=== PATIENT | male | born 1970 | race African-American/Black ===

== ENCOUNTER 2019-08-21 13:16 | Emergency (ER) | payer OTHER ==
[~2019-08-21] VITALS: Ht 180.3 cm; Wt 104.3 kg
[2019-08-21 13:51] VITALS: BP 172/97
--- NOTE | 2019-08-21 17:34 | PHYS DOC ---
Past Medical History Past Medical History: Seizure Past Surgical History: Tonsillectomy Alcohol Use: Occasionally Drug Use: Marijuana Adult General Chief Complaint Chief Complaint: ANXIETY/PANIC ATTACK HPI HPI Patient is a 48 year old male with history of seizures who presents to the ED today to be evaluated for what was listed as anxiety. When I went to patient's room to collect more information,. Patient immediately said i should've talked to the other people and not ask him the same question. Informed patient i asked the nurse information and the nurse reported he has anxiety and nothing more. He stands up, he is yelling stating that we should read information not not ask him any further information, informed patient I'll not able to help him if he cannot give me any further information about his symptoms he continues to states he is not going to give me any information anymore. He states I should know why he is here, he states that i should call his own doctor and figure out why he is here. Informed patient I don't know his doctor. He states i should know his doctor. He states he was seen at urgent care and sent to the ED, and i should know that information from urgent care, informed patient I did not talk to urgent care and do not know why they sent him to the Ed. Inquired from patient if he has any personal or family medical history. He states i should know that information and stop asking him any further information. He states I can call his own parents and gave information from them but is not going to give me any information. Asked patient if he is suicidal or homicidal, he states he is not going to give any further information to anyone any more. In fact he states if we continued to ask him any further question he is going to walk out of the ED. Informed patient at this point i am not able to help him because he is not giving me any information. Informed him i will call the PAT team to come and talk to him, he states if that involves giving more information or talking to someone else he does not want. He states he feels people around here are collecting and listening to his information. He stood up and states he wants to sign out AGAINST MEDICAL ADVICE. Talked to him about the risk of leaving AMA. He states he and knows the risk and can no longer stay in this hospital because we are asking him to many information, he signed out AMA and left. Review of Systems Review of Systems Constitutional: Denies fever or chills [] Eyes: Denies change in visual acuity, redness, or eye pain [] HENT: Denies nasal congestion or sore throat [] Respiratory: Denies cough or shortness of breath [] Cardiovascular: No additional information not addressed in HPI [] GI: Denies abdominal pain, nausea, vomiting, bloody stools or diarrhea [] : Denies dysuria or hematuria [] Musculoskeletal: Denies back pain or joint pain [] Integument: Denies rash or skin lesions [] Neurologic: Denies headache, focal weakness or sensory changes [] Psych: Anxiety All other systems were reviewed and found to be within normal limits, except as documented in this note. Physical Exam Physical Exam Constitutional: Well developed, well nourished, no acute distress, non-toxic appearance. [] HENT: Normocephalic, atraumatic, bilateral external ears normal, oropharynx moist, no oral exudates, nose normal. [] Eyes: PERRLA, EOMI, conjunctiva normal, no discharge. [] Neck: Normal range of motion, no tenderness, supple, no stridor. [] Cardiovascular:Heart rate regular rhythm, no murmur [] Lungs & Thorax: Bilateral breath sounds clear to auscultation [] Abdomen: Bowel sounds normal, soft, no tenderness, no masses, no pulsatile masses. [] Skin: Warm, dry, no erythema, no rash. [] Back: No tenderness, no CVA tenderness. [] Extremities: No tenderness, no cyanosis, no clubbing, ROM intact, no edema. [] Neurologic: Alert and oriented X 3, normal motor function, normal sensory function, no focal deficits noted. [] Psychologic: Appears very anxious. Current Patient Data Vital Signs Vital Signs Date Time Temp Pulse Resp B/P (MAP) Pulse Ox O2 Delivery O2 Flow Rate FiO2 08/21/19 13:51 99.4 110 16 172/97 (122) 99 Room Air 99.4 EKG EKG [] Radiology/Procedures Radiology/Procedures [] Course & Med Decision Making Course & Med Decision Making Pertinent Labs and Imaging studies reviewed. (See chart for details) See history of present illness, patient refused to give me any information about his visit. He is signed out AMShana Luis Disclaimer Janelle Disclaimer This electronic medical record was generated, in whole or in part, using a voice recognition dictation system. Departure Departure Impression: Primary Impression: Anxiety Disposition: 07 AGAINST MEDICAL ADVICE Condition: STABLE Referrals: SAVANNAH PIERCE (PCP) BRIAN MOULTON APRN Aug 21, 2019 17:34
== END 2019-08-21 14:37 | disposition left against medical advice (07) ==
LOC: EEVIPCON 13:16 → ER 13:16
DX: F41.9 Anxiety disorder, unspecified (principal)
CPT/HCPCS: 99284